=== PATIENT | male | born 1950 | race Caucasian/White ===

== ENCOUNTER 2020-06-17 08:38 | Outpatient (REF) | payer MEDICARE, SELFPAY ==
[2020-06-17 11:32] LABS: MANUAL DIFF FLAG NO
[2020-06-17 11:56] LABS: Basophils Absolute Auto 0.1 X10*3/uL (0.0-0.2); Eosinophils Absolute Auto 0.4 X10*3/uL (0.0-0.4); Eosinophils Percent Auto 6.6 % (0-4); Hematocrit 43.5 % (42-52); Hemoglobin 14.7 g/dl (14.0-18.0); Imm Gran Abs Auto 0.02 X10*3/uL (0.00-0.03); Imm Gran Pct Auto 0.3 % (0.0-0.4); Lymphocytes Absolute Auto 1.4 X10*3/uL (1.2-4.9); Lymphocytes Percent Auto 23.9 % (20-40); Mean Corpuscular HGB Conc 33.8 g/dl (31.0-36.0); Mean Corpuscular Hemoglobin 27.5 pg (27.0-33.0); Mean Corpuscular Volume 81.5 fL (80-98); Mean Platelet Volume 9.8 fL (9.4-12.4); Monocytes Absolute Auto 0.3 X10*3/uL (0.1-1.2); Monocytes Percent Auto 5.8 % (2-11); Neutrophils Absolute Auto 3.7 X10*3/uL (2.0-8.3); Neutrophils Percent Auto 62.4 % (45-73); Platelet Count 276 X10*3/uL (160-400); Red Blood Count 5.34 X10*6/uL (4.60-5.80); Red Cell Distribution Width 12.5 % (11.0-16.0); White Blood Count 5.9 X10*3/uL (4.8-10.8)
[2020-06-17 12:54] LABS: Alanine Aminotransferase 33 U/L (0-40); Albumin Level 4.1 g/dL (3.5-5.0); Alkaline Phosphatase 107 U/L (39-117); Anion Gap 14 (12-20); Aspartate Amino Transferase 22 U/L (5-37); Bilirubin Total 0.6 mg/dL (0.0-1.0); Blood Urea Nitrogen 16 mg/dL (9-16); Calcium 9.8 mg/dL (8.4-10.2); Carbon Dioxide 26 mmol/L (22-29); Chloride 103 mmol/L (96-108); Cholesterol 158 mg/dL; Estimated Glomerular Filt Rate > 60; Glucose Fasting 98 mg/dL (60-99); HDL Cholesterol 44 mg/dL; LDL Cholesterol Calculated 96 mg/dl; Potassium 3.6 mmol/L (3.3-5.1); Sodium 139 mmol/L (135-145); Total Protein 6.3 g/dL (6.5-8.0); Triglycerides 90 mg/dL
[2020-06-17 13:15] LABS: Prostate Specific Antigen 2.18 ng/mL (<0.05-4.0)
[2020-06-20 07:55] LABS: ~HepC Num1 0.08 S/CO (0.00-0.79); ~Hepatitis C Antibody Nonreactive (Nonreactive)
== END 2020-06-17 08:39 | disposition home or self-care (01) ==
LOC: HO.MANLDS 08:38
PROVIDERS: PCP Internal Medicine; Visit Provider Internal Medicine
DX: Z00.00 Encounter for general adult medical examination without abnormal findings (principal); Z12.5 Encounter for screening for malignant neoplasm of prostate
CPT/HCPCS: 36415; 80053; 80061; 84153; 85025; 86803

== ENCOUNTER 2021-06-13 09:57 | Outpatient (REF) | payer MEDICARE, SELFPAY ==
[2021-06-13 11:06] LABS: MANUAL DIFF FLAG NO
[2021-06-13 11:19] LABS: Basophils Absolute Auto 0.1 X10*3/uL (0.0-0.2); Basophils Percent Auto 0.8 % (0-2); Eosinophils Absolute Auto 0.2 X10*3/uL (0.0-0.4); Eosinophils Percent Auto 2.4 % (0-4); Hematocrit 44.6 % (42.0-52.0); Imm Gran Abs Auto 0.04 X10*3/uL (0.00-0.03); Imm Gran Pct Auto 0.5 % (0.0-0.4); Lymphocytes Absolute Auto 1.7 X10*3/uL (1.2-4.9); Lymphocytes Percent Auto 21.4 % (20-40); Mean Corpuscular HGB Conc 33.6 g/dl (31.0-36.0); Mean Corpuscular Hemoglobin 27.9 pg (27.0-33.0); Mean Corpuscular Volume 83.1 fL (80.0-98.0); Mean Platelet Volume 9.2 fL (9.4-12.4); Monocytes Absolute Auto 0.5 X10*3/uL (0.1-1.2); Monocytes Percent Auto 6.2 % (2-11); Neutrophils Absolute Auto 5.5 x10*3/uL (2.0-8.3); Neutrophils Percent Auto 68.7 % (45-73); Platelet Count 427 X10*3/uL (160-400); Red Blood Count 5.37 X10*6/uL (4.60-5.80); Red Cell Distribution Width 12.4 % (11.0-16.0); White Blood Count 7.9 X10*3/uL (4.8-10.8)
[2021-06-13 12:04] LABS: Alanine Aminotransferase 52 U/L (0-40); Albumin Level 4.1 g/dL (3.5-5.0); Alkaline Phosphatase 111 U/L (39-117); Anion Gap 12 (12-20); Aspartate Amino Transferase 23 U/L (5-37); Blood Urea Nitrogen 13 mg/dL (9-16); Calcium 10.1 mg/dL (8.4-10.2); Carbon Dioxide 29 mmol/L (22-29); Chloride 102 mmol/L (96-108); Cholesterol 161 mg/dL; Estimated Glomerular Filt Rate > 60; Glucose Fasting 87 mg/dL (60-99); HDL Cholesterol 36 mg/dL; LDL Cholesterol Calculated 100 mg/dl; Potassium 4.1 mmol/L (3.3-5.1); Sodium 139 mmol/L (135-145); Total Protein 6.9 g/dL (6.5-8.0); Triglycerides 126 mg/dL
[2021-06-13 12:06] LABS: Prostate Specific Antigen 2.77 ng/mL (<0.05-4.0); Vitamin D 25-OH Total 19.5 ng/mL (>30)
[2021-06-13 12:09] LABS: Vitamin B12 430 pg/mL (200-900)
== END 2021-06-13 09:58 | disposition home or self-care (01) ==
LOC: HO.MANLDS 09:57
PROVIDERS: PCP Internal Medicine; Visit Provider Internal Medicine
DX: Z00.00 Encounter for general adult medical examination without abnormal findings (principal); Z12.5 Encounter for screening for malignant neoplasm of prostate
CPT/HCPCS: 36415; 80053; 80061; 82306; 82607; 84153; 84443; 85025

== ENCOUNTER 2022-06-22 07:19 | Outpatient (REF) | payer MEDICARE, SELFPAY ==
[2022-06-22 07:27] LABS: MANUAL DIFF FLAG NO
[2022-06-22 07:50] LABS: Basophils Absolute Auto 0.1 X10*3/uL (0.0-0.2); Basophils Percent Auto 0.7 % (0-2); Eosinophils Absolute Auto 0.4 X10*3/uL (0.0-0.4); Eosinophils Percent Auto 4.1 % (0-4); Hematocrit 45.3 % (42.0-52.0); Hemoglobin 15.6 g/dl (14.0-18.0); Imm Gran Abs Auto 0.02 X10*3/uL (0.00-0.03); Imm Gran Pct Auto 0.2 % (0.0-0.4); Lymphocytes Absolute Auto 1.8 X10*3/uL (1.2-4.9); Lymphocytes Percent Auto 17.8 % (20-40); Mean Corpuscular HGB Conc 34.4 g/dl (31.0-36.0); Mean Corpuscular Volume 84.2 fL (80.0-98.0); Mean Platelet Volume 9.7 fL (9.4-12.4); Monocytes Absolute Auto 0.8 X10*3/uL (0.1-1.2); Monocytes Percent Auto 7.3 % (2-11); Neutrophils Absolute Auto 7.2 x10*3/uL (2.0-8.3); Neutrophils Percent Auto 69.9 % (45-73); Platelet Count 246 X10*3/uL (160-400); Red Blood Count 5.38 X10*6/uL (4.60-5.80); Red Cell Distribution Width 13.2 % (11.0-16.0); White Blood Count 10.3 X10*3/uL (4.8-10.8)
[2022-06-22 08:46] LABS: Alanine Aminotransferase 22 U/L (0-40); Albumin Level 4.1 g/dL (3.5-5.0); Alkaline Phosphatase 117 U/L (39-117); Anion Gap 11 (12-20); Aspartate Amino Transferase 18 U/L (5-37); Blood Urea Nitrogen 15 mg/dL (9-16); Calcium 9.7 mg/dL (8.4-10.2); Carbon Dioxide 29 mmol/L (22-29); Chloride 104 mmol/L (96-108); Cholesterol 139 mg/dL; Estimated Glomerular Filt Rate > 60; Glucose Random 93 mg/dL (60-115); HDL Cholesterol 36 mg/dL; LDL Cholesterol Calculated 80 mg/dl; Potassium 3.9 mmol/L (3.3-5.1); Sodium 140 mmol/L (135-145); Total Protein 6.3 g/dL (6.5-8.0); Triglycerides 115 mg/dL
[2022-06-22 09:04] LABS: Prostate Specific Antigen 2.43 ng/mL (<0.05-4.0); Vitamin D 25-OH Total 45.8 ng/mL (>30)
== END 2022-06-22 07:20 | disposition home or self-care (01) ==
LOC: HO.LAB 07:19
PROVIDERS: PCP Internal Medicine; Visit Provider Internal Medicine
DX: Z00.00 Encounter for general adult medical examination without abnormal findings (principal); Z12.5 Encounter for screening for malignant neoplasm of prostate; E55.9 Vitamin D deficiency, unspecified; E78.00 Pure hypercholesterolemia, unspecified
CPT/HCPCS: 36415; 80053; 80061; 82306; 84153; 85025

== ENCOUNTER 2024-10-23 08:14 | Outpatient (REF) | payer MEDICARE, SELFPAY ==
--- OUTSIDE RECORDS SUMMARY | 2024-10-23 08:29 | XMS_ITS | Encounter Summary ---
Author Organization [facility] Address 399 [facility] [address] [place] [address] Phone Care Team Providers Care Gis Programmer Name Role Phone AbeQasim tony Primary Care Provider [phone] Aby Qasim Cristobal Unavailable Encounter Details Date Type Department Care Team (Late Contact Info) Description 06/11/2018 Ancillary Orders [facility], X-Ray - [address] [address] Effie Coronado, SENIOR QC TECHNICIAN [address] [place] [address] Abnormal weight loss Social History Tobacco Use Types Packs/Day Years Used Date Smoking Tobacco: Never Assessed Sex and Gender Information Value Date Recorded Sex Assigned at Not on file Legal Sex Male 10:00 PM EDT Gender Identity Not on file Sexual Orientation Not on file documented as of this encounter Plan of Treatment Upcoming Encounters Date Type Department Care Team (Late st Contact Info) Description 02/24/2025 7:15 AM EST Appointment [facility], Bone Density - [address] [address] Qasim Badillo DO [address] [place] [address] documented as of this encounter Results * XR CHEST PA AND LATERAL 2 VIEWS (06/11/2018 9:22 AM EDT) Anatomical Region Laterality Modality Chest Radiographic Nahomi ging 06/11/2018 9:26 AM EDT Impressions 06/11/2018 9:27 AM EDT No acute process. . . . . . . . . . . . . . . . . . . . . . . POS [id number] Narrative 06/11/2018 9:27 AM EDT PA and lateral chest, 2 views. Compared to 06/25/2014. . . . . . . . . . . . . . . . . . . . . . Heart and mediastinum are normal in size and contour; no obvious mass or adenopathy. No infiltrate, effusion or interstitial changes. No nodules or masses. No pneumothorax. No acute or worrisome bony abnormalities. Procedure Note Román Black MD - 06/11/2018 PA and lateral chest, 2 views. Compared to 06/25/2014. . . . . . . . . . . . . . . . . . . .. . Heart and mediastinum are normal in size and contour; no obvious mass oradenopathy. No infiltrate, effusion or interstitial changes. No nodules or masses. No pneumothorax. No acute or worrisome bony abnormalities. IMPRESSION: No acute process. . . . . . . . . . . . . . . . . . . .. . . POS [email or web address] Effie Coronado SENIOR QC TECHNICIAN IMG XR CHEST Final Resul t documented in this encounter Visit Diagnoses Diagnosis Abnormal weight loss Loss of weight Abnormal weight loss Loss of weight documented in this encounter Care Teams Gis Programmer Relationship Specialty Start Date End Date Qasim Badillo DO [email or web address] PCP - General 11/26/16 Qasim Badillo DO [address] [place] [address] [email or web address] Insurance Assigned Provider 06/14/18 documented as of this encounter Additional Source Comments The information contained in this document represents components of the legal health record. It is not the complete legal health record.[facility]
--- OUTSIDE RECORDS SUMMARY | 2024-10-23 08:30 | XMS_ITS | Encounter Summary ---
Author Organization [facility] Address 399 [facility] [address] [place] [address] Phone Care Team Providers Care Telegraph Plant Maintainer Name Role Phone AbechavoQasim DO Primary Care Provider [phone] Encounter Details Date Type Department Care Team (Late st Contact Info) Description 10/13/2024 Transcribe Orders [facility] [address] [place] [address] Qasim Badillo DO 179 [facility] [address] [place], [place] [id number] [email or web address] Social History Tobacco Use Types Packs/Day Years Used Date Smoking Tobacco: Former Cigarettes Q uit: 2006 Smokeless Tobacco: Never Alcohol Use Standard Drinks/Week Comments Yes 0 (1 standard drink = 0.6 oz pur e alcohol) 1 per month Education Answer Date Recorded Are you interested in more education? Not on sara e 06/08/2022 Are you concerned about learning? Not on file 06/08/2022 No 06/08/2022 No 06/08/2022 Digital Access Answer Date Recorded No 07/07/2022 No 07/07/2022 No 07/07/2022 Reliable internet access at home? Not on file 07/07/2022 Device with a working camera? Not on file Sex and Gender Information Value Date Recorded Sex Assigned at Not on file Legal Sex Male 10:00 PM EDT Gender Identity Not on file Sexual Orientation Not on file documented as of this encounter Plan of Treatment Upcoming Encounters Date Type Department Care Team (Late st Contact Info) Description 02/24/2025 7:15 AM EST Appointment [facility], [facility] [address] [place] [address] Qasim Badillo DO [address] [facility] [place] [address] [email or web address] documented as of this encounter Visit Diagnoses Not on filedocumented in this encounter Care Teams Telegraph Plant Maintainer Relationship Specialty Start Date End Date Qasim Badillo DO [email or web address] PCP - General 11/26/16 documented as of this encounter Additional Source Comments The information contained in this document represents components of the legal health record. It is not the complete legal health record.[facility]
--- OUTSIDE RECORDS SUMMARY | 2024-10-23 08:30 | XMS_ITS | Clinical Summary ---
Author Organization [facility] Address [address] [address] Phone Care Team Providers Care Configuration Management Consultant Name Role Phone Damian Harris DO Primary Care Provider [phone] Allergies Active Allergy Reactions Criticality Noted Date Comments Amoxicillin Diarrhea 10/18/2021 Bee Pollen 10/18/2021 Sulfa (Sulfonamide Antibiotics) 08/2021 Medications aspirin 81 mg chewable tablet daily. Acti ve atorvastatin (LIPITOR) 80 MG tablet atorvastatin 80 mg tablet TAKE 1 TABLET BY MOUTH DAILY 1 Active olmesartan-hydr oCHLOROthiazide (BENICAR HCT) 40-25 mg per tablet 2 Active metoprolol tartrate (LOPRESSOR) 50 MG tablet metoprolol tartrate 50 mg tablet TAKE 1 TABLET BY MOUTH TWICE DAILY Active omeprazole (PRILOSEC) 20 MG capsule omeprazole 20 mg capsule,delayed release Active cholecalciferol (VITAMIN D3) 400 unit tablet Take 400 Units by mouth daily. Active Encounters Date Type Department Care Team Description 10/13/[address] [facility] [address] [place] [address] Damian Harris DO 10/06/2024 Transcribe Orders [facility] Department [address] [place] [address] Damian Harris DO Encounter for screening for osteoporosis (Primary Dx) from Last 3 Months Social History Tobacco Use Types Packs/Day Years [...] on file Sexual Orientation Not on file Last Filed Vital Signs Vital Sign Reading Time Taken Comments Blood Pressure 88/47 10/19/2021 8:10 AM EDT Pulse 49 10/19/2021 8:10 AM EDT Temperature 36.1 C (97 F) 10/19/2021 8:10 AM EDT Respiratory Rate 16 10/19/2021 8:10 AM EDT Oxygen Saturation 95% 10/19/2021 8:10 AM EDT Inhaled Oxygen Concentration - - Weight 78 kg (172 lb) 10/18/2021 10:21 AM EDT Height 180.3 cm (5' 11 ) 10/18/2021 10:21 AM EDT Body Mass Index 23.99 10/18/2021 10:21 AM EDT Plan of Treatment Upcoming Encounters Date Type Department Care Team (Late st Contact Info) Description 02/24/2025 7:15 AM EST Appointment [facility], Bone Density - [facility] [address] [place] [address] Damian Harris, [address] [facility] [place] [place] [address] [place] [address] Health Maintenance Due Date Last Done Comments DEPRESSION SCREENING 1962 SMOKING Hx and SMOKELESS TOBACCO SCREENING 09/29/1964 HEPATITIS C SCREENING 09/29/1969 COLOGUARD 09/29/1996 FIT TEST 09/29/1996 FOBT 09/29/1996 SIGMOIDOSCOPY 09/29/1996 VIRTUAL COLONOSCOPY 09/29/1996 INFLUENZA VACCINE (#1) 2024 , 11/18/2019, 11/25/2018, Additional history exists COVID-19 VACCINE ( season) 2024 12/21/2020, 05/12/2020, 04/14/2020 CREATININE LEVEL 10/20/2024 10/21/2023 POTASSIUM LEVEL 10/20/2024 10/21/2023 RSV VACCINE (1 - 1-dose 75+ series) 09/29/2026 LIPID PANEL 10/20/2028 10/21/2023, 06/06/2018 Adult Td,Tdap Booster 06/17/2030 06/17/2020 COLONOSCOPY 10/20/2031 10/19/2021 COLORECTAL CANCER SCREENING 10/20/2031 PNEUMOCOCCAL VACCINES (50+ years) Completed 12/05/2018, 12/05/2017 ZOSTER VACCINES Completed 08/16/2020, 06/17/2020 ABDOMINAL AORTIC ANEURYSM (AAA) SCREENING Completed 07/10/2022 HEPATITIS A VACCINES Aged Out No long er eligible based on patient's age to complete this topic HIB VACCINES Aged Out No longer eligi ble based on patient's age to complete this topic MENINGOCOCCAL VACCINES (ACWY) Aged Out No longer eligible based on patient's age to complete this topic MENINGOCOCCAL VACCINES (B) Aged Out N o longer eligible based on patient's age to complete this topic Medical Devices Not on file Procedures Procedure Name Priority Date/Time Associated Diagnosis Comments LIPID PANEL Routine 10/21/2023 7:50 AM EDT Screening for prostate cancer Routine general medical examination at a health care facility COMPREHENSIVE METABOLIC PANEL Routine 10/21/2023 7:50 AM EDT Screening for prostate cancer Routine general medical examination at a health care facility US ABDOMINAL AORTIC SCREENING Routine 07/10/2022 8:48 AM EDT Encounter for screening for cardiovascular disorders ENDOSCOPY, COLON 10/19/2021 7:10 AM EDT from Last 3 Months or Most Recently Relevant to Health Maintenance Results * (ABNORMAL) Comprehensive metabolic panel (10/21/2023 7:50 AM EDT) SODIUM 140 133 - 146 mmol/L [facility] POTASSIUM 3.6 3.3 - 5.1 mmol/L [facility] CHLORIDE 103 96 - 108 mmol/L [facility] CO2 28 21 - 35 mmol/L [facility] BUN 16 6 - 19 mg/dL [facility] CREATININE 0.80 0.5 - 1.5 mg/dL [facility] GLUCOSE 100(H) 70 - 99 mg/dL [facility] ALBUMIN 3.9 3.9 - 4.8 g/dL [facility] TOTAL PROTEIN 6.9 6.5 - 8.0 g/dL [facility] CALCIUM 9.3 8.4 - 10.3 mg/dL [facility] ALKALINE PHOSPHATASE 109 39 - 117 U/L [facility] TOTAL BILIRUBIN 0.8 0.0 - 1.2 mg/dL [facility] AST 20 0 - 37 U/L [facility] ALT 21 0 - 40 U/L [facility] GLOBULIN 3.0 1 - 4.8 g/dL [facility] EGFR 94 >59 mL/min/1.7 3m2 [facility] Comment:Estimated glomerular filtration rate calculated using the CKD-EPI refit equation. ANION GAP 13 10 - 20 mmol/L [facility] Blood 10/21/2023 7:50 AM EDT 10/21/2023 7:52 AM EDT us Damian A Bigda DO LAB BLOOD ORDERABLES Final Resul t Performing Organization Address City/State/[facility] Co de Phone Number [address] [address] * (ABNORMAL) Lipid panel (10/21/2023 7:50 AM EDT) HDL 39 mg/dL [facility] Comment: Interpretation <40 mg/dL: Low HDL cholesterol (major risk factor for CHD) Greater than or equal to 60 mg/dL: High HDL cholesterol ( negative risk factor for CHD) HDL - cholesterol is affected by a number of factors, e.g. smoking, excerise, hormones, sex and age. CHOLESTEROL 123 0 - 240 mg/dL [facility] TRIGLYCERIDES 79 30 - 160 mg/dL [facility] LDL 68 50 - 129 mg/dL [facility] Comment: LDL levels in terms of risk for coronary heart disease: <100 mg/dL: Optimal 100-129 mg/dL: Near or above optimal 130-159 mg/dL: Borderline high 160-189 mg/dL: High >190 mg/dL: Very High CARDIAC RISK RATIO 3.2(L) 3.4 - 5.0 C [facility] Blood 10/21/2023 7:50 AM EDT 10/21/2023 7:53 AM EDT us Damian A Bigda DO LAB BLOOD ORDERABLES Final Resul t [facility] [address] [place] [address] * US Abdominal Aortic Screening (07/10/2022 8:48 AM EDT) Anatomical Region Laterality Modality Abdomen Ultrasound 07/11/2022 1:03 AM EDT Impressions 07/11/2022 1:04 AM EDT No evidence of abdominal aortic aneurysm. Ectatic common iliac arteries up to 1.2 cm. Narrative 07/11/2022 1:04 AM EDT US ABDOMINAL AORTIC SCREENING ULTRASOUND OF THE AORTA AND COMMON ILIAC ARTERIES AND IVC TECHNIQUE: Duplex US examination of the abdominal aorta was performed using a combination of amezcua scale, color and pulsed wave Doppler. INDICATIONS: Peripheral arterial disease, atherosclerosis, question abdominal aorta aneurysm COMPARISON: None FINDINGS: Technically adequate exam demonstrates: Examination of the abdominal aorta demonstrates no evidence of aneurysm. The abdominal aorta measures 1.8 x 1.9 cm proximally, 1.8 x 1.8 cm in its midportion, and 2.0 x 2.0 cm distally. The common iliac arteries are ectatic measuring 1.2 x 1.2 cm on the right and 1.2 x 1.2 cm on the left. The partially visualized proximal IVC is patent. Procedure Note Ric Mendez MD - 07/11/2022 US ABDOMINAL AORTIC SCREENING ULTRASOUND OF THE AORTA AND COMMON ILIAC ARTERIES AND IVC TECHNIQUE: Duplex US examination of the abdominal aorta was performedusing a combination of amezcua scale, color and pulsed wave Doppler. INDICATIONS: Peripheral arterial disease, atherosclerosis, questionabdominal aorta aneurysm COMPARISON: None FINDINGS: Technically adequate exam demonstrates: Examination of the abdominal aorta demonstrates no evidence of aneurysm.The abdominal aorta measures 1.8 x 1.9 cm proximally, 1.8 x 1.8 cm in itsmidportion, and 2.0 x 2.0 cm distally. The common iliac arteries are ectatic measuring 1.2 x 1.2 cm on the rightand 1.2 x 1.2 cm on the left. The partially visualized proximal IVC is patent. IMPRESSION: No evidence of abdominal aortic aneurysm. Ectatic common iliac arteries up to 1.2 cm. us Damian A Bigda DO IMG US ABDOMEN Final Result * ENDOSCOPY, COLON (10/19/2021 7:10 AM EDT) Narrative Transcriptions Wesley Suarez MD - 10/19/2021 7:10 AM EDT Patient Name: Denny Burns Attending MD:: WESLEY SUAREZ MD, Procedure Date: 10/19/2021 7:10 AM Date of : 1950 Age: 71 Admit Type: Outpatient Gender: Male Room: [facility] Referring MD: DAMIAN HARRIS DO Exam Type: Colonoscopy Indications: Screening for colorectal malignant neoplasm Medications: Monitored Anesthesia Care Procedure: Informed consent was obtained from the patientafter discussion of the indications, limitations, alternatives, benefits, and risks of the procedure. Risks specifically discussed include but are not limited to medication reactions, missed lesions, bleeding, perforation, or the need for emergent surgery. Throughout the procedure, the patient's blood pressure, pulse, end-tidal CO2, and oxygensaturations were monitored continuously. The Olympus pediatric variable colonoscopePCF-H190DL #4 was introduced through the anus and advanced tothe cecum, identified by appendiceal orifice andileocecal valve. The Olympus pediatric variable colonoscope PCF-H190DL #2 was introduced through the andadvanced to. The colonoscopy was performed withoutdifficulty. The patient tolerated the procedure well. Thequality of the bowel preparation was excellent. The qualityof the bowel preparation was evaluated using the BBPS (Humbird Bowel Preparation Scale) with scores of:Right Colon = 3, Transverse Colon = 3 and Left Colon = 3 (entire mucosa seen well with no residual staining, small fragments of stool or opaque liquid). Thetotal BBPS score equals 9. Anatomical landmarks were photographed. Complications: No immediate complications. Estimated blood loss: Minimal. Findings: The perianal and digital rectal examinations were normal. A 2 mm polyp was found in the transverse colon. The polyp was sessile. The polyp was removed with acold biopsy forceps. Resection and retrieval werecomplete. Internal hemorrhoids were found duringretroflexion. The hemorrhoids were mild. No other significant abnormalities were identifiedin a careful examination of the remainder of thecolon. Impression: - One 2 mm polyp in the transverse colon, removedwith a cold biopsy forceps. Resected and retrieved. - Internal hemorrhoids. Recommendation: - Discharge patient to home. - Await pathology results. WESLEY SUAREZ MD, 10/19/2021 8:08:52 AM This report has been signed electronically. Number of Addenda: 0 Note Initiated On: 10/19/2021 7:10 AM Procedure Code(s): --- Professional --- 21425, Colonoscopy, flexible; with biopsy, single or multiple --- Technical --- 33739, Colonoscopy, flexible; with biopsy, single or multiple Diagnosis Code(s): --- Professional --- Z12.11, Encounter for screening for malignantneoplasm of colon K63.5, Polyp of colon K64.8, Other hemorrhoids --- Technical --- Z12.11, Encounter for screening for malignantneoplasm of colon K63.5, Polyp of colon K64.8, Other hemorrhoids CPT copyright 2020 [employer]. All rights reserved. The codes documented in this report are preliminary and upon jumpbasting collar baster reviewmay be revised to meet current compliance requirements. Procedure Date: 10/19/2021 7:10:17 AM [address] [place] [address] us Damian Harris DO GI PROCEDURE ORDERABLES Final Re sult from Last 3 Months or Most Recently Relevant to Health Maintenance Insurance [employer] MEDICARE HMO [employer]PLACEMENT [employer] RE[employer] MEDICARE HMO REPLACEMENT [employer] RE[employer] MEDICARE HMO REPLACEMENT Care Teams Configuration Management Consultant Relationship Specialty Start Date End Date Damian Harris DO [email or web address] PCP - General 11/26/16 Additional Source Comments The information contained in this document represents components of the legal health record. It is not the complete legal health record.[facility]
--- OUTSIDE RECORDS SUMMARY | 2024-10-23 08:30 | XMS_ITS | Encounter Summary ---
Author Organization [facility] Address 399 [facility] [address] [place] [address] Phone Care Team Providers Care Centralized Traffic Control Operator Name Role Phone Qasim Badillo Primary Care Provider [phone] Qasim Badillo DO Unavailable Encounter Details Date Type Department Care Team (Latest Contact Info) Description 06/17/2018 Transcribe Orders [facility] [address] [place] [address] Effie Coronado, TIE BUCKER [address] [place] [address] Impaired fasting glucose (Primary Dx); Thrombocytopenia, unspecified Social History Tobacco Use Types Packs/Day Years [...] Info) Description 02/24/2025 7:15 AM EST Appointment [facility], Bone Density - [facility] [address] [place] [address] Qasim Badillo DO [address] [facility] [address] [place], [place] [id number] documented as of this encounter Results * Vitamin B12 (06/17/2018 9:37 AM EDT) VITAMIN B12 460 232 - 1,245 pg/mL [facility] Blood 06/17/2018 9:37 AM EDT 06/17/2018 10:07 AM EDT us Effie Coronado TIE BUCKER LAB BLOOD ORDERABLES Final Result [address] [address] * Folate (06/17/2018 9:37 AM EDT) FOLIC ACID 9.3 4.2 - 19.9 ng/mL [facility] Blood 06/17/2018 9:37 AM EDT 06/17/2018 10:07 AM EDT Effie Coronado [facility] LAB BLOOD ORDERABLES Final Result Performing Organization Address City/[facility]/ZIP Co de Phone Number [address] [address] * (ABNORMAL) CBC and differential (06/17/2018 9:37 AM EDT) WBC 7.31 3.40 - 11.20 K/uL [facility] RBC 4.93 4.50 - 5.50 M/uL [facility] HGB 13.2 13.0 - 17.0 g/dL [facility] HCT 39.2(L) 40.0 - 51.0 % [facility] PLT 492(H) 130 - 400 K/uL [facility] MCV 79.5 79.0 - 98.0 [facility] MCH 26.8(L) 27.0 - 34.8 pg [facility] MCHC 33.7 31.5 - 36.0 g/dL [facility] RDW 12.8 10.8 - 14.6 % [facility] MPV 8.8(L) 9.4 - 12.4 [facility] NRBC 0.00 0.00 /100 WBCs [facility] ABSOLUTE NRBC 0.00 0.00 K/uL [facility] DIFF METHOD Auto [facility] NEUTS 58.5 45.30 - 77.70 % [facility] LYMPHS 24.5 12.30 - 39.70 % [facility] MONOS 13.1(H) 4.10 - 12.80 % [facility] EOS 2.6 0 - 7.2 % [facility] BASOS 0.8 0 - 2.80 % [facility] Granulocytes, immature (%) 0.5 0.0 - 0.9 % [facility] ABSOLUTE NEUTS 4.27 1.40 - 7.70 K/uL [facility] ABSOLUTE LYMPHS 1.79 0.60 - 3.20 K/uL [facility] ABSOLUTE MONOS 0.96(H) 0.11 - 0.59 K/uL [facility] ABSOLUTE EOS 0.19 0.01 - 0.50 K/uL [facility] ABSOLUTE BASOS 0.06 0.00 - 0.08 K/uL [facility] Granulocytes, immature 0.04 0.00 - 0.05 K/uL [facility] Blood 06/17/2018 9:37 AM EDT 06/17/2018 10:07 AM EDT us Effie Ivonne [facility] LAB BLOOD ORDERABLES Final Result [address] [address] * Hemoglobin A1c (06/17/2018 9:37 AM EDT) HEMOGLOBIN A1C 5.8 4.3 - 5.8 % [facility] Blood 06/17/2018 9:37 AM EDT 06/17/2018 10:07 AM EDT [facility] Ivonne [facility] LAB BLOOD ORDERABLES Final Result [address] [address] documented in this encounter Visit Diagnoses Diagnosis Impaired fasting glucose- Primary Thrombocytopenia, unspecified documented in this encounter Care Teams Centralized Traffic Control Operator Relationship Specialty Start Date End Date Qasim Badillo DO [email or web address] PCP - General 11/26/16 Qasim Badillo DO [address] [place] [address] [email or web address] Insurance Assigned Provider 06/14/18 documented as of this encounter Additional Source Comments The information contained in this document represents components of the legal health record. It is not the complete legal health record.[facility]
--- OUTSIDE RECORDS SUMMARY | 2024-10-23 08:30 | XMS_ITS | Encounter Summary ---
Author Organization [facility] Address [address] [facility] [address] [place] [address] Phone Care Team Providers Care Steam Fitter Helper Name Role Phone Qasim Badillo DO Primary Care Provider [phone] Encounter Details Date Type Department Care Team (Late Contact Info) Description 10/19/2021 Procedure Pass [facility] Admitting Dept [facility] Department [address] [place] [address] Social History Tobacco Use Types Packs/Day Years Used Date Smoking Tobacco: Former Cigarettes Q uit: 2006 Smokeless Tobacco: Never Alcohol Use Standard Drinks/Week Comments Yes 0 (1 standard drink = 0.6 oz pur e alcohol) 1 per month Sex and Gender Information Value Date Recorded Sex Assigned at Not on file Legal Sex Male 10:00 PM EDT Gender Identity Not on file Sexual Orientation Not on file documented as of this encounter Plan of Treatment Upcoming Encounters Date Type Department Care Team (Late Contact Info) Description 02/24/2025 7:15 AM EST Appointment [facility], Bone Density - [facility] [address] [place] [address] Qasim Badillo DO [address] [facility] [place] [address] [email or web address] documented as of this encounter Visit Diagnoses Not on filedocumented in this encounter Care Teams Steam Fitter Helper Relationship Specialty Start Date End Date Qasim Badillo DO [email or web address] PCP - General 11/26/16 documented as of this encounter Additional Source Comments The information contained in this document represents components of the legal health record. It is not the complete legal health record.[facility]
--- OUTSIDE RECORDS SUMMARY | 2024-10-23 08:30 | XMS_ITS | Encounter Summary ---
Author Organization [facility] Address [address] [facility] [address] [place] [address] Phone Care Team Providers Care [facility] Name Role Phone [email or web address] DO Primary Care Provider [phone] Encounter Details Date Type Department Care Team (Late st Contact Info) Description 10/06/2024 Transcribe Orders Virtual Department [address] [place] [address] Qasim Badillo DO [address] [facility] [address] [place], [place] [id number] [email or web address] Encounter for screening for osteoporosis (Primary Dx) Social History Tobacco Use Types Packs/Day Years [...] Info) Description 02/24/2025 7:15 AM EST Appointment [facility], Bone Density - [facility] [address] [place] [address] Qasim Badillo DO [address] [facility] [place] [address] [place] [address] [email or web address] Scheduled Orders Name Type Priority Associated Diagnoses Orde r Schedule DXA Screening Imaging Routine Encounter for screening for osteoporosis Expected: 11/05/2024, Expires: 10/06/2025 documented as of this encounter Visit Diagnoses Diagnosis Encounter for screening for osteoporosis- Primary documented in this encounter Care Teams [facility] Relationship Specialty Start Date End Date Qasim Badillo DO [email or web address] PCP - General 11/26/16 documented as of this encounter Additional Source Comments The information contained in this document represents components of the legal health record. It is not the complete legal health record.[facility]
[2024-10-23 13:17] LABS: MANUAL DIFF FLAG NO
[2024-10-23 13:36] LABS: Hematocrit 40.5 % (42.0-52.0); Hemoglobin 14.0 g/dl (14.0-18.0); Imm Gran Abs Auto 0.01 X10*3/uL (0.00-0.03); Imm Gran Pct Auto 0.2 % (0.0-0.4); Lymphocytes Absolute Auto 1.8 X10*3/uL (1.2-4.9); Mean Corpuscular HGB Conc 34.6 g/dl (31.0-36.0); Mean Corpuscular Hemoglobin 28.9 pg (27.0-33.0); Mean Corpuscular Volume 83.5 fL (80.0-98.0); NRBC Abs Auto 0.000 X10*3/uL (0.0-0.012); NRBC Pct Auto 0.0 /100WBC (0.0-0.2); Platelet Count 248 X10*3/uL (160-400); Red Blood Count 4.85 X10*6/uL (4.60-5.80); White Blood Count 5.8 X10*3/uL (4.8-10.8)
[2024-10-23 14:04] LABS: Alanine Aminotransferase 33 U/L (0-40); Albumin Level 4.1 g/dL (3.5-5.0); Alkaline Phosphatase 88 U/L (39-117); Anion Gap 12 (12-20); Aspartate Amino Transferase 35 U/L (5-37); Blood Urea Nitrogen 14 mg/dL (9-16); Calcium 9.1 mg/dL (8.4-10.2); Carbon Dioxide 29 mmol/L (22-29); Chloride 104 mmol/L (96-108); Cholesterol 134 mg/dL (<200); Estimated Glomerular Filt Rate > 60; HDL Cholesterol 40 mg/dL (>40); Potassium 3.5 mmol/L (3.3-5.1); Sodium 141 mmol/L (135-145); Total Protein 6.3 g/dL (6.5-8.0); Triglycerides 98 mg/dL (<150)
== END 2024-10-23 08:15 | disposition home or self-care (01) ==
LOC: HO.MANLDS 08:14
PROVIDERS: Visit Provider Internal Medicine
DX: Z00.00 Encounter for general adult medical examination without abnormal findings (principal); Z13.6 Encounter for screening for cardiovascular disorders
CPT/HCPCS: 36415; 80053; 80061; 85025